=== PATIENT | male | born 1990 | race African-American/Black ===

== ENCOUNTER 2019-12-21 14:38 | Emergency (ER) | payer OTHER ==
--- NOTE | 2019-12-21 15:48 | CT ---
CT head noncontrast HISTORY: Headache. FINDINGS: There is no evidence of acute intracranial hemorrhage or infarct. The ventricles appear nor mal in size, shape and position. There is no mass effect or shift of midline structures. Visualized paranasal sinuses remain well aerated. Mild leftward deviation of nasal bone without cortical disruption. Probably an old nasal fracture. IMPRESSION : No acute intracranial abnormalities are demonstrated.
== END 2019-12-21 16:03 ==
LOC: MADERS 14:38
DX: R51 Headache (principal); I10 Essential (primary) hypertension; F41.9 Anxiety disorder, unspecified; F17.210 Nicotine dependence, cigarettes, uncomplicated; Z79.899 Other long term (current) drug therapy
CPT/HCPCS: 70450

== ENCOUNTER 2020-01-25 12:10 | Emergency (ER) | payer OTHER ==
--- NOTE | 2020-01-25 12:52 | RAD ---
RADIOGRAPH CHEST 1 VIEW: DATE: 01/25/2020 HISTORY: 29-year-old male with dyspnea FINDINGS: The visualized lung casiano are clear. The cardiomediastinal silhouette and hilar shadows are normal. The lateral costophrenic angles are sharp. There is no pneumothorax. IMPRESSION: Negative.
[2020-01-25 12:56] LABS: #Basophils 0.1 thou/uL (0.0-0.2); #Eosinphils 0.1 thou/uL (0.0-0.7); #Lymphocytes 1.5 thou/uL (1.20-3.40); #Monocytes 0.4 thou/uL (0.11-0.59); #Neutrophils 2.8 thou/uL (1.40-6.50); %Basophils 1.2 % (0.0-1.0); %Eosinophils 1.5 % (0.0-10.0); %Lymphocytes 30.4 % (21.0-51.0); %Monocytes 9.2 % (0.0-10.0); %Neutrophils 57.8 % (42.0-75.0); Hemoglobin 14.1 g/dL (14.0-18.0); Mean Corpuscular HGB CONC 31.4 g/dL (32.0-36.0); Mean Corpuscular Hemoglobin 27.8 pg (27.0-31.0); Mean Corpuscular Volume 88.6 fL (78.0-98.0); Platelet Count 219 thou/uL (130-400); RBC Distribution Width 12.7 % (11.5-14.5); Red Blood Cell (RBC) Count 5.09 mill/uL (4.70-6.10); White Blood Cell (WBC) Count 4.8 thou/uL (4.8-10.8)
[2020-01-25 13:16] LABS: ALT (SGPT) 14 U/L (8-55); AST (SGOT) 18 U/L (5-34); Albumin 4.5 g/dL (3.5-5.0); Alkaline Phosphatase 78 U/L (40-110); Anion Gap 16 mmol/L (10-20); BUN (Urea Nitrogen) 17 mg/dL (8.9-20.6); Bilirubin, Total 0.3 mg/dL (0.2-1.2); CK (CPK) 147 U/L (30-200); Calc. Creatinine Clearance 0 mL/min (70-130); Calcium 9.4 mg/dL (7.8-10.44); Carbon Dioxide 26 mmol/L (22-29); Chloride 102 mmol/L (98-107); Estimated GFR-MDRD Greater than 90; Globulin 3.6 g/dL (2.4-3.5); Glucose 102 mg/dL (70-105); Protein, Total 8.1 g/dL (6.0-8.3); Sodium 140 mmol/L (136-145)
== END 2020-01-25 13:55 | disposition home or self-care (01) ==
LOC: EEVIPCON 12:10 → MADERS 12:10
DX: R60.0 Localized edema (principal); I10 Essential (primary) hypertension; F41.9 Anxiety disorder, unspecified; F17.210 Nicotine dependence, cigarettes, uncomplicated
CPT/HCPCS: 36415; 71045; 80053; 82550; 83880; 84484; 85025; 93005